=== PATIENT | male | born 1955 | race Caucasian/White ===

== ENCOUNTER 2024-06-26 09:42 | Emergency (ER) | payer MEDICARE, OTHER, SELFPAY ==
[2024-06-26] VITALS (8 sets, daily range): BP systolic 150–188; BP diastolic 77–89; PULSE 54–79; RESP 16–20; TEMP 36.3–36.9; O2SAT 99–100; BMI 33.9
--- NOTE | 2024-06-26 09:51 | DI.RAD.S_ITS ---
PROCEDURE: XR FOOT LT 2V INDICATIONS: foot pain TECHNIQUE: 2 views of the foot were acquired. COMPARISON: None. FINDINGS AND IMPRESSION: Partially seen ankle fractures. Questionable lucency at the base of the 5th proximal phalanx. Correlate for tenderness. Moderate 1st MTP degenerative changes, likely with bone fragments that are chronic. Midfoot degenerative changes are also present. Slight hallux valgus alignment. Achilles enthesopathy. No suspicious soft tissue calcifications otherwise. Dictated by: Jam Win M.D. on 06/26/2024 at 10:24 Approved by: Jam Win M.D. on 06/26/2024 at 10:26
--- NOTE | 2024-06-26 09:51 | DI.RAD.S_ITS ---
PROCEDURE: XR ANKLE LT MIN 3V INDICATIONS: ankle pain TECHNIQUE: 3 views of the ankle were acquired. COMPARISON: None. FINDINGS AND IMPRESSION: Mildly displaced and comminuted oblique distal fibular fracture at the level of the syndesmosis. Likely small avulsion fracture fragment at the medial malleolus. Soft tissue swelling Background midfoot degenerative changes. Achilles enthesopathy. Dictated by: Jam Win M.D. on 06/26/2024 at 10:22 Approved by: Jam Win M.D. on 06/26/2024 at 10:23
--- NOTE | 2024-06-26 09:53 | ED.LOWEXIN ---
HPI - Extremity Injury (Lower) General Chief Complaint: Extremity Injury, Lower Stated Complaint: GLF/ankle ankle/lower leg pain Time Seen by Provider: 06/26/24 09:44 History of Present Illness HPI Narrative: 61-year-old man who arrives by EMS. History is obtained primarily by EMS as the patient is under the influence of ketamine on arrival. Patient slipped in the mud injured his left ankle. He was splinted by EMS and reportedly was appropriate and oriented at this time. There was no report of the head injury. He received fentanyl 100 mcg and then ketamine 50 mg IV. Following this he became anxious and was calling out ?help me? over and over again. Per EMS he had no injuries other than his left ankle or foot. Related Data Home Medications Medication Instructions Recorded Confirmed lisinopril 20 1 tab PO DAILY 06/26/24 06/26/24 mg-hydrochlorothiazide 12.5 mg tablet tamsulosin 0.4 mg capsule 0.4 mg PO DAILY 06/26/24 06/26/24 Previous Rx's Medication Instructions Recorded oxycodone 5 mg tablet 5 mg PO Q6H PRN pain #14 tabs 06/26/24 Allergies Allergy/AdvReac Type Severity Reaction Status Date / Time ketamine AdvReac Severe Anxiety Verified 06/26/24 10:19 Patient History Social History Smoking Status: Never smoker Exam Narrative Exam Narrative: Patient is very vocal, calling out help me over and over again. He is wearing muddy clothing. Initial Vital Signs Initial Vital Signs: Vital Signs Temperature 98.4 F 06/26/24 09:42 Pulse Rate 67 06/26/24 09:42 Respiratory Rate 20 06/26/24 09:42 Blood Pressure 174/79 H 06/26/24 09:42 Pulse Oximetry 100 06/26/24 09:42 Oxygen Delivery Method Room Air 06/26/24 09:42 Reviewed [facility] Other: Normocephalic atraumatic pupils are equal and reactive Neck Other: Supple without midline tenderness Chest Other: Chest abdomen and pelvis are nontender to palpate Skin Other: Warm and dry Extrem Other: Left ankle and foot is without gross deformity. While he is under the influence of ketamine I can not elicit tenderness of the left ankle and foot nor could I elicit tenderness over the tibia fibula or knee. Capillary refill is intact pulses are intact light touch sensation is intact Procedures Orthopedic Splinting/Casting Injury #1: Side: left Lower Extremity Injury Location: ankle Lower Extremity Immobilizer: posterior splint and stirrup splint Post splinting neuro exam: intact Post splinting vascular exam: intact Placed by: Nursing Course Orders Ordered: ED Orders 06/26/24 09:51 XR ankle LT min 3V Stat XR foot LT 2V Stat Discontinued Medications Hydromorphone HCl (Hydromorphone 1 Mg Inj) 1 mg IV NOW ONE Stop: 06/26/24 09:52 Last Admin: 06/26/24 09:55 Dose: 1 mg Documented By: DEMARIO Ondansetron HCl (Ondansetron 4 Mg/2 Ml Inj) 4 mg IV NOW ONE Stop: 06/26/24 11:09 Last Admin: 06/26/24 11:48 Dose: 4 mg Documented By: MODESTO Reevaluation(s) Reevaluation #1: Patient was re-evaluated. He is now alert and appropriate. Has no injuries other than his left ankle, no tenderness of the left foot suggest a 5th digit fracture. Vital Signs Vital signs: Vital Signs - 8 hr 06/26/24 09:42 06/26/24 09:48 06/26/24 09:49 Temperature 98.4 F Pulse Rate 67 68 Respiratory Rate 20 20 Blood Pressure 174/79 H 174/89 H Pulse Oximetry 100 100 Oxygen Delivery Method Room Air Room Air 06/26/24 09:49 06/26/24 10:00 06/26/24 10:25 Temperature Pulse Rate 67 62 60 Respiratory Rate 16 Blood Pressure Pulse Oximetry 99 100 100 Oxygen Delivery Method Room Air 06/26/24 10:25 06/26/24 10:30 06/26/24 10:30 Temperature Pulse Rate 54 L Respiratory Rate 18 Blood Pressure 188/81 H 169/77 H Pulse Oximetry 99 Oxygen Delivery Method 06/26/24 11:00 06/26/24 11:00 Temperature Pulse Rate 55 L Respiratory Rate 18 Blood Pressure 179/83 H Pulse Oximetry 100 Oxygen Delivery Method MDM - Extremity Injury (Lower) Imaging Data Extremity x-ray #1: My Impression: Independently reviewed left ankle x-ray, there is a distal fibular fracture. Not grossly angulated Radiologist's Impression: [address] [address] XRay Report Signed Patient: Jose A Garcia MR#: [id number] : 1955 Acct:[id number] Age/Sex: 69 / M Date of Service: 06/26/24 Loc: ED Accession Number: [id number] Procedure: XR ankle LT min 3V Ordering Provider: Fahad Sotomayor MD PROCEDURE: XR ANKLE LT MIN 3V INDICATIONS: ankle pain TECHNIQUE: 3 views of the ankle were acquired. COMPARISON: None. FINDINGS AND IMPRESSION: Mildly displaced and comminuted oblique distal fibular fracture at the level of the syndesmosis. Likely small avulsion fracture fragment at the medial malleolus. Soft tissue swelling Background midfoot degenerative changes. Achilles enthesopathy. Dictated by: Jam Win M.D. on 06/26/2024 at 10:22 Extremity x-ray #2: Radiologist's Impression: [place] [address] XRay Report Signed Patient: Jose A Garcia MR#: [id number] : 1955 Acct:[id number] Age/Sex: 69 / M Date of Service: 06/26/24 Loc: ED Accession Number: [id number] Procedure: XR foot LT 2V Ordering Provider: Fahad Sotomayor MD PROCEDURE: XR FOOT LT 2V INDICATIONS: foot pain TECHNIQUE: 2 views of the foot were acquired. COMPARISON: None. FINDINGS AND IMPRESSION: Partially seen ankle fractures. Questionable lucency at the base of the 5th proximal phalanx. Correlate for tenderness. Moderate 1st MTP degenerative changes, likely with bone fragments that are chronic. Midfoot degenerative changes are also present. Slight hallux valgus alignment. Achilles enthesopathy. No suspicious soft tissue calcifications otherwise. Dictated by: Jam Win M.D. on 06/26/2024 at 10:24 Approved by: Jam Win M.D. on 06/26/2024 at 10:26 [facility] Narrative Medical decision making narrative: 69-year-old man with a left ankle fracture. Injury is closed neurovascularly intact and emergency reduction not required. He was splinted made nonweightbearing and referred to Orthopedics I wrote a prescription for a few oxycodone to use as needed for pain. Discharge Plan Departure Patient Disposition: Home Clinical Impression: Ankle fracture Qualifiers: Encounter type: initial encounter Fracture type: closed Laterality: left Qualified Code(s): S82.892A - Other fracture of left lower leg, initial encounter for closed fracture Instructions: How to Use Crutches, DI for Fracture Activity Restrictions/Additional Instructions: Today, we saw you for an ankle fracture. We applied a splint, you need to leave than on and keep it clean and dry. You should not be weight-bearing on your left ankle. Use the crutches. Elevate your left ankle above the level of the heart when able. Use Tylenol and or ibuprofen at usual [id number] doses as needed for pain. I provided a prescription for oxycodone they can use if these are not sufficient. You had an unfavorable reaction to ketamine and should probably not get that again. We will add this as an allergy. Follow up soon with Orthopedic surgery. If you have severe ankle pain or severe leg pain recheck in the emergency department Prescriptions: New oxycodone 5 mg tablet 5 mg PO Q6H PRN (Reason: pain) Qty: 14 0RF No Action lisinopril-hydrochlorothiazide 20-12.5 mg tablet 1 tab PO DAILY tamsulosin 0.4 mg capsule 0.4 mg PO DAILY Referrals: Summer Kirkland MD [Physician] - As soon as possible Stand Alone Forms: Patient Portal/API/Survey
[2024-06-26] MEDS: HYDROMORPHONE 1 MG INJ IV (09:55)
[2024-06-26] MEDS: ONDANSETRON 4 MG/2 ML INJ IV (11:48)
== END 2024-06-26 13:34 | disposition home or self-care (01) ==
PROVIDERS: Emergency Provider Emergency Medicine
DX: S82.832A Other fracture of upper and lower end of left fibula, initial encounter for closed fracture (principal); W01.0XXA Fall on same level from slipping, tripping and stumbling without subsequent striking against object, initial encounter
CPT/HCPCS: 27788; 29515; 73610; 73620; 96374; 96375; 99284; J1171; J2405